=== PATIENT | female | born 1970 | race Caucasian/White ===

== ENCOUNTER 2020-05-21 10:04 | Outpatient (CLI) | payer BC, SELFPAY ==
--- NOTE | ~2020-05-21 | MM_ITS ---
EXAMINATION: MM scrn dorcas implant BI w alicia HISTORY: Screening mammogram TECHNIQUE: Craniocaudal and mediolateral oblique 3-D tomosynthesis images with implant displacement a nd synthetic 2-D images were generated. Craniocaudal and mediolateral oblique views of the breasts wi thout implant displacement were obtained using full field digital mammography. CAD analysis was submi tted and interpreted. COMPARISON: 10/04/2018, 02/15/2017, 09/18/2015 bilateral implant digital screening mammogram examinations BREAST PARENCHYMAL COMPOSITION: The breasts are heterogeneously dense, which may obscure small masses . FINDINGS: Status post bilateral augmentation mammoplasty. There is prominent calcification of the imp lants. There is no evidence of suspicious mass, calcification, or architectural distortion to suggest malignancy in either breast. There has been no suspicious interval change. IMPRESSION: 1. No mammographic evidence of malignancy. 2. Recommend routine screening mammography in one year. BI-RADS Category 1: Negative Reviewed, dictated and finalized at location A. ON SEQUESTRATION PLANT OPERATOR
== END 2020-05-21 10:05 | disposition home or self-care (01) ==
LOC: ANHIMG 10:08
PROVIDERS: PCP Family Medicine; Visit Provider Obstetrics & Gynecology
DX: Z12.31 Encounter for screening mammogram for malignant neoplasm of breast (principal)
CPT/HCPCS: 77063; 77067

== ENCOUNTER 2021-10-12 11:34 | Outpatient (CLI) | payer BC, SELFPAY ==
--- NOTE | ~2021-10-12 | MM_ITS ---
EXAMINATION: MM scrn dorcas implant BI w alicia HISTORY: Screening mammogram TECHNIQUE: Craniocaudal and mediolateral oblique 3-D tomosynthesis images with implant displacement a nd synthetic 2-D images were generated. Craniocaudal and mediolateral oblique views of the breasts wi thout implant displacement were obtained using full field digital mammography. CAD analysis was submi tted and interpreted. COMPARISON: 05/21/2020, 10/04/2018, 02/15/2017 bilateral screening mammogram examinations BREAST PARENCHYMAL COMPOSITION: The breasts are heterogeneously dense, which may obscure small masses . FINDINGS: Prominent calcifications are noted around both breast implants. There is no evidence of ibis picious mass, calcification, or architectural distortion to suggest malignancy in either breast. Ther e has been no suspicious interval change. IMPRESSION: 1. No mammographic evidence of malignancy. 2. Recommend routine screening mammography in one year. BI-RADS Category 1: Negative Reviewed, dictated and finalized at location A.
== END 2021-10-12 11:35 | disposition home or self-care (01) ==
LOC: ANHIMG 11:37
PROVIDERS: PCP Family Medicine; Visit Provider Obstetrics & Gynecology
DX: Z12.31 Encounter for screening mammogram for malignant neoplasm of breast (principal)
CPT/HCPCS: 77063; 77067

== ENCOUNTER 2023-02-13 14:52 | Outpatient (CLI) | payer BC, SELFPAY ==
--- NOTE | ~2023-02-13 | XR_ITS ---
EXAM: XR shoulder LT min 2V DATE: 02/13/2023 15:25 HISTORY: Pain to neck and left shoulder no injury . COMPARISON: X-ray T-spine 08/24/2012. FINDINGS: Intact cerclage/sternotomy wires over the midline chest. Normal mineralization. No fractur e or dislocation. No lytic or blastic lesion. Mild degenerative change at the AC joint and glenohumer al joint. No erosion or periosteal change. Soft tissues within normal limits. 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 Reviewed, dictated and finalized at location K.
--- NOTE | ~2023-02-13 | XR_ITS ---
EXAMINATION:XR cervical spine 4-5V DATE: 02/13/2023 15:25 INDICATION: Neck pain TECHNIQUE: AP, lateral in neutral, flexion, extension, and odontoid views of the cervical spine are p rovided. COMPARISON: None FINDINGS: There are 3 mm of retrolisthesis of C4 on C5. No hypermobility is present with flexion or e xtension. The odontoid process is intact. No fracture is identified. The vertebral body heights are m aintained. There is moderate loss of intervertebral disc space height at C4-5 and mild loss of interv ertebral disc space height at C5-6 and C6-7. Small degenerative osteophytes project from the anterior endplates of multiple vertebral bodies. There is multilevel moderate facet and uncovertebral joint o steoarthritis. Prevertebral soft tissues are normal. IMPRESSION: 1. Moderate cervical spondylosis without acute findings. Reviewed, dictated and finalized at location B.
== END 2023-02-13 14:53 | disposition home or self-care (01) ==
PROVIDERS: PCP Family Medicine; Visit Provider Family Medicine
DX: M47.892 Other spondylosis, cervical region (principal); M19.012 Primary osteoarthritis, left shoulder
CPT/HCPCS: 72050; 73030

== ENCOUNTER 2023-03-07 13:39 | Outpatient (CLI) | payer BC, SELFPAY ==
--- NOTE | ~2023-03-07 | MR_ITS ---
MRI of the cervical spine Clinical History: Spondylosis Technique: Axial T2-weighted and gradient images, and sagittal T1-weighted, T2-weighted, and STIR dianne ges were acquired. COMPARISON: 09/03/2012 Findings: No fracture identified. Minimal grade 1 retrolisthesis of C4 over C5 noted. No suspicious b one marrow signal abnormality seen. At C2-C3, there is no disc bulge or herniation. No spinal canal stenosis, cord compression, or neural foraminal narrowing. At C3-C4, there is no disc bulge or herniation. No spinal canal stenosis, cord compression, or neural foraminal narrowing. At C4-C5, there is degenerative disc narrowing with mild disc osteophyte convex. There is minimal fla ttening the ventral cord. There is probable minimal bilateral neural foraminal narrowing. At C5-C6, there is minimal disc osteophyte complex. No central canal stenosis or cord compression. Bi lateral neural foramina are preserved. At C6-C7, there is minimal disc osteophyte convex. No spinal canal stenosis, cord compression, or uzair ral foraminal narrowing. No abnormal signal seen in the spinal cord. Paravertebral soft tissues are unremarkable. Impression: Mild degenerative spondylosis overall, as detailed above, worst at C4-C5. Minimal grade 1 retrolisthesis of C4 over C5. Reviewed, dictated and finalized at [facility]. Impression: Mild degenerative spondylosis overall, as detailed above, worst at C4-C5. Minimal grade 1 retrolisthesis of C4 over C5.
== END 2023-03-07 13:40 | disposition home or self-care (01) ==
LOC: ANHIMG 13:42
PROVIDERS: PCP Family Medicine; Visit Provider Nurse Practitioner Family
DX: M47.812 Spondylosis without myelopathy or radiculopathy, cervical region (principal); M54.2 Cervicalgia
CPT/HCPCS: 72141

== ENCOUNTER 2023-05-28 08:21 | Outpatient (CLI) | payer BC, SELFPAY ==
[2023-05-28 09:03] LABS: Hematocrit 44.9 % (37.0-47.0); Hemoglobin 14.8 g/dL (12.0-15.0); Mean Corpuscular Hemoglobin 30.9 pg (26-34); Mean Corpuscular Volume 93.7 fl (80-100); Mean Platelet Volume 10.4 fl (7.4-10.4); Platelet Count Result 336 k/mm3 (150-375); Red Blood Count 4.79 M/mm3 (4.2-5.4); Red Cell Distribution Width 11.7 % (11.5-14.5); White Blood Count 5.6 K/mm3 (4.5-10.0)
[2023-05-28 09:31] LABS: Alanine Aminotransferase 24 U/L (6-35); Albumin Level 4.4 g/dL (3.5-5.1); Alkaline Phosphatase 63 U/L (38-126); Anion Gap 10 mmol/L (8-16); Aspartate Amino Transferase 24 U/L (14-36); Bilirubin,Total 0.6 mg/dL (0.2-1.3); Blood Urea Nitrogen 16 mg/dL (7-17); Calcium 9.3 mg/dL (8.4-10.2); Carbon Dioxide 28 mmol/L (22-30); Chloride 100 mmol/L (98-107); Cholesterol 250 mg/dL (0-200); Estimated Glomerular Filt Rate > 60; Glucose 101 mg/dL (65-110); HDL Direct 67 mg/dL; Potassium 4.2 mmol/L (3.4-5.0); Sodium 138 mmol/L (137-145); Triglycerides 266 mg/dL (<150)
[2023-05-28 09:33] LABS: LDL Cholesterol Direct 113 mg/dL
[2023-05-28 09:59] LABS: Vitamin D 25 Hydroxy 20.2 ng/mL
== END 2023-05-28 08:22 | disposition home or self-care (01) ==
LOC: ANHLAB 08:29
PROVIDERS: PCP Family Medicine; Visit Provider Nurse Practitioner Family
DX: E55.9 Vitamin D deficiency, unspecified (principal); E78.5 Hyperlipidemia, unspecified; Z13.29 Encounter for screening for other suspected endocrine disorder; Z13.1 Encounter for screening for diabetes mellitus
CPT/HCPCS: 36415; 80053; 80061; 82306; 84443; 85027

== ENCOUNTER 2023-06-10 09:00 | Outpatient (CLI) | payer BC, SELFPAY ==
--- NOTE | 2023-06-10 13:53 | WPDPFTINT ---
PFT Procedure Performed PFT Procedure Performed Spirometry with Pre/Post Bronchodilator Plethysmography (Lung Vol) Diffusing Cap (DLCO) Flow Vol Loop PFT Interpretation This is a pulmonary function test with pre and post-bronchodilator spirometry, plethysmography and diffusing capacity. The test was performed and results interpreted in accordance with the 2019 and 2005 ATS/ERS Task Force guidelines respectively using the Global Lung Function Initiative-2012 reference equations. Patient demonstrated good effort and cooperation. Reproducibility criteria were met. The quality of the pre bronchodilator spirometry maneuver was Grade A and post bronchodilator spirometry maneuver was Grade A. Findings: Spirometry: The contour the inspiratory and expiratory flow tracing are normal. The pre bronchodilator FVC is 3.03 L, 91% predicted. The pre bronchodilator FEV1 is 2.14 L, 81% predicted. The pre bronchodilator FEV1: FVC ratio 71%. The post bronchodilator FVC is 2.94 L, representing a 3% decrease. The post bronchodilator FEV1 is 2.26 L, representing a 6% increase. The post bronchodilator FEV1: FVC ratio 77%. Plethysmography: The total lung capacity is 4.28 L, 84% predicted. The functional residual capacity is 2.62 L, 92% predicted. The residual volume is 1.24 L, 66% predicted. Diffusing capacity: The diffusing capacity unadjusted for hemoglobin and carboxyhemoglobin is 16.3, 74% predicted. The diffusing capacity adjusted for alveolar volume is 4.36, 96% predicted. Impression: The spirometry is normal without evidence of an obstructive abnormality. There is no significant improvement after inhaling a single dose of albuterol. The lung volumes are normal. The diffusing capacity is normal. There are no prior studies for comparison
== END 2023-06-10 09:01 | disposition home or self-care (01) ==
LOC: ANHPFT 09:01
PROVIDERS: PCP Family Medicine; Visit Provider Family Medicine
DX: J43.9 Emphysema, unspecified (principal)
CPT/HCPCS: 94060; 94726; 94729

== ENCOUNTER 2023-06-25 15:44 | Outpatient (CLI) | payer BC, SELFPAY ==
--- NOTE | ~2023-06-25 | MM_ITS ---
EXAMINATION: MM scrn dorcas implant BI w alicia HISTORY: Screening mammogram TECHNIQUE: Craniocaudal and mediolateral oblique 3-D tomosynthesis images with implant displacement a nd synthetic 2-D images were generated. Craniocaudal and mediolateral oblique views of the breasts wi thout implant displacement were obtained using full field digital mammography. CAD analysis was submi tted and interpreted. COMPARISON: October 12, 2021, May 21, 2020 bilateral implant screening mammogram examinations BREAST PARENCHYMAL COMPOSITION: The breasts are heterogeneously dense, which may obscure small masses . FINDINGS: Status post bilateral augmentation mammoplasty. There is no evidence of suspicious mass, ca lcification, or architectural distortion to suggest malignancy in either breast. There has been no jackson spicious interval change. IMPRESSION: 1. No mammographic evidence of malignancy. 2. Recommend routine screening mammography in one year. BI-RADS Category 1: Negative Reviewed, dictated and finalized at location A. ON SAMPLER
== END 2023-06-25 15:45 | disposition home or self-care (01) ==
LOC: ANHIMG 15:46
PROVIDERS: PCP Family Medicine; Visit Provider Obstetrics & Gynecology
DX: Z12.31 Encounter for screening mammogram for malignant neoplasm of breast (principal)
CPT/HCPCS: 77063; 77067

== ENCOUNTER 2024-05-24 14:12 | Outpatient (CLI) | payer BC, SELFPAY ==
--- NOTE | ~2024-05-24 | XR_ITS ---
EXAMINATION: XR hip RT min 2V DATE: 05/24/2024 14:30 INDICATION: Posterior right hip pain. TECHNIQUE: 2 views of right hip were obtained. COMPARISON: None. FINDINGS: Alignment is normal. No fracture. Right hip joint space is normal. IMPRESSION: 1. Normal right hip. Reviewed, dictated and finalized at location A. CTIONS THERAPIST IMPRESSION: 1. Normal right hip.
== END 2024-05-24 14:13 | disposition home or self-care (01) ==
PROVIDERS: PCP Family Medicine; Visit Provider Nurse Practitioner Adult Health
DX: M25.551 Pain in right hip (principal)
CPT/HCPCS: 73502

== ENCOUNTER 2024-06-08 11:00 | Outpatient (CLI) | payer BC, SELFPAY ==
--- NOTE | ~2024-06-08 | XR_ITS ---
XR sacroiliac joints min 3V Ordering provider: Kathi Rangel, SOLAR SYSTEM INSTALLER-C History: . Sacrococcygeal disorders, not elsewhere classified . Comparison: None. FINDINGS: BONES: Sclerotic areas are seen in the left pedicle of L4 and L5. No acute fracture or dislocation. JOINTS: The bilateral sacroiliac joint spaces appear well maintained. No bony fusion of the sacroilia c joints or bony erosions. SOFT TISSUES: Unremarkable. IMPRESSION: NO ACUTE OSSEOUS ABNORMALITY. NORMAL SACROILIAC JOINTS. Reviewed, dictated and finalized at location A. HARDENER
== END 2024-06-08 11:01 | disposition home or self-care (01) ==
LOC: MICIMG 11:02
PROVIDERS: PCP Family Medicine; Visit Provider Nurse Practitioner Family
DX: M53.3 Sacrococcygeal disorders, not elsewhere classified (principal)
CPT/HCPCS: 72202

== ENCOUNTER 2024-11-30 13:26 | Outpatient (CLI) | payer BC, SELFPAY ==
--- NOTE | ~2024-11-30 | MMUS_ITS ---
Examination: MM diagnostic DARNELL implant BI W alicia and US breast LT limited INDICATION: 54-year old female with bilateral breast augmentation with silicone implants feels a left breast lump between 1:30 and 12:00 location. COMPARISON: 06/25/2023 through 10/04/2018 TECHNIQUE: Digital breast tomosynthesis CC and MLO views of Both breasts and True lateral and spot co mpression of the Both breasts were obtained with computer-aided detection to assist in interpretation of the study. A radiopaque skin marker was placed over the area of LEFT breast palpable lump. FINDINGS: The breasts are heterogeneously dense, which may obscure small masses. There are no suspicious masses, calcifications, architectural distortion or any other abnormality in Both breasts. No suspicious mammographic abnormality correlates to the radiopaque skin marker. No str uctural capsular silicone material evident. LEFT BREAST ULTRASOUND FINDINGS: Targeted sonographic evaluation of the palpable area and subareolar area was completed. There is no s onographic abnormality that correlates to the area of palpable lump identified by the patient. There are multiple lines of the implant elastomer seen within the silicone gel compatible with intrac apsular implant rupture. No extracapsular silicone material is evident. IMPRESSION: 1. NO MAMMOGRAPHIC OR SONOGRAPHIC FINDING CORRELATE TO THE PALPABLE LUMP IN THE LEFT BREAST. FURTHER EVALUATION OF PATIENT'S PALPABLE LUMP SHOULD BE BASED ON CLINICAL IMPRESSION. FOLLOW-UP CLINICALLY WARRANTED. 2. NO MAMMOGRAPHIC EVIDENCE OF MALIGNANCY IN BILATERAL BREASTS. 3. FINDINGS COMPATIBLE WITH INTRACAPSULAR RUPTURE OF LEFT SILICONE IMPLANT. CONSIDER FURTHER EVALUATION WITH BREAST MRI. BI-RADS 2, BENIGN Reviewed, dictated and finalized at location B. IMPRESSION: 1. NO MAMMOGRAPHIC OR SONOGRAPHIC FINDING CORRELATE TO THE PALPABLE LUMP IN THE LEFT BREAST. FURTHER EVALUATION OF PATIENT'S PALPABLE LUMP SHOULD BE BASED ON CLINICAL IMPRESSION. FOLLOW-UP CLINICALLY WARRANTED. 2. NO MAMMOGRAPHIC EVIDENCE OF MALIGNANCY IN BILATERAL BREASTS. 3. FINDINGS COMPATIBLE WITH INTRACAPSULAR RUPTURE OF LEFT SILICONE IMPLANT. CONSIDER FURTHER EVALUATION WITH BREAST MRI. BI-RADS 2, BENIGN
--- OUTSIDE RECORDS SUMMARY | 2024-11-30 13:34 | XMS_ITS | Clinical Summary ---
Author Organization [facility] Address [address] [address] Attn: Epic Prelude ADT JENNIFER JONES [id number] Care Team Providers Care Railway Engineer Name Role Phone Unavailable Primary Care Provider Unavailabl e Immunizations Immunization Administration Dates Next Due INFLUENZA VACCINE QUADRIVALENT 6 MOS UP PF IM Social History Tobacco Use Types Packs/Day Years Used Date Smoking Tobacco: Never Assessed Comments Unknown Sex and Gender Information Value Date Recorded Sex Assigned at Not on file Legal Sex Female 3:26 PM CDT Gender Identity Not on file Sexual Orientation Not on file Plan of Treatment Health Maintenance Due Date Last Done Comments DTAP/TDAP/TD VACCINES (1 - Tdap) 1987 HEPATITIS B VACCINES (1 of 3 - 19+ 3-dose series) 04/29 HPV/Cotest (21-29) 1989 CERVICAL CANCER SCREENING 1998 HPV/Cotest (30-65) 1998 PAP SMEAR 1998 BREAST CANCER SCREENING 2008 COLORECTAL SCREENING 2013 Colorectal Cancer Screening 2013 FIT-DNA Q 3 years 2013 FIT/FOBT Q 1 year 2013 Flex Sig/CT Colonography Q 5 years 2013 ZOSTER VACCINE (1 of 2) 2018 INFLUENZA VACCINE (#1) 2024 05/28/2023 Insurance RX [facility] [employer] [facility] [employer]
--- OUTSIDE RECORDS SUMMARY | 2024-11-30 13:34 | XMS_ITS | Clinical Summary ---
Author Organization [facility] [address] Address [address] [place] [id number] Care Team Providers Care Unit Leader Name Role Phone Gage Osborn MD Primary Care Provider + [phone] Allergies Active Allergy Reactions Criticality Noted Date Comments Nickel Penicillins Other (See comments) Reaction: Unknown, Medications FLUoxetine (PROzac) 10 mg tablet/capsule Take 1 tablet/capsu le (10 mg total) by mouth daily Active dextroamphetami ne-amphetamine (ADDERALL) 10 mg tablet 1 tablet (10 mg total) Active amitriptyline (ELAVIL) 10 mg tablet TAKE 3/4 TABLET BY MOUTH EVERY DAY 03/16/2023 Active estradiol-noret hindrone (ACTIVELLA) 0.5-0.1 mg per tablet Take 1 tablet by mouth daily 03/09/2023 Active Ozempic 1 mg/dose (4 mg/3 mL) pen injector injection INJECT 1 MG UNDER THE SKIN ONCE WEEKLY 03/09/2023 Active benzonatate (TESSALON) 100 mg capsuleIndicati ons:Cough Take 1 capsule (100 mg total) by mouth 3 (three) times a day as needed for cough 42 capsule 05/10/2023 Active Active Problems No known active problems Medical History Medical History Date Comments Depression Depression Family History Medical History Relation Name Comments Diabetes Other Hypertension Other Family history of Hypertension; Relation Name Status Comments Other Social History Tobacco Use Types Packs/Day Years Used Date Smoking Tobacco: Never Smokeless Tobacco: Never Alcohol Use Standard Drinks/Week Comments Yes 0 (1 standard drink = 0.6 oz pur e alcohol) Comments Unknown Sex and Gender Information Value Date Recorded Sex Assigned at Not on file Legal Sex Female 3:38 AM SENIOR UI SOFTWARE ENGINEER Gender Identity Not on file Sexual Orientation Not on file 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 on file Not on file Not on file Obstetrics History Last Filed Vital Signs Vital Sign Reading Time Taken Comments Blood Pressure 130/86 05/10/2023 10:53 AM SENIOR UI SOFTWARE ENGINEER Pulse 88 05/10/2023 10:53 AM SENIOR UI SOFTWARE ENGINEER Temperature 36.6 C (97.9 F) 05/10/2023 10:53 AM SENIOR UI SOFTWARE ENGINEER Respiratory Rate 18 05/10/2023 10:53 AM SENIOR UI SOFTWARE ENGINEER Oxygen Saturation 99% 05/10/2023 10:53 AM SENIOR UI SOFTWARE ENGINEER Inhaled Oxygen Concentration - - Weight 70.3 kg (155 lb) 05/10/2023 10:53 AM SENIOR UI SOFTWARE ENGINEER Height 162.6 cm (5' 4) 05/10/2023 10:53 AM SENIOR UI SOFTWARE ENGINEER Body Mass Index 26.61 05/10/2023 10:53 AM SENIOR UI SOFTWARE ENGINEER Plan of Treatment Health Maintenance Due Date Last Done Comments Breast Cancer Screening-Mammogram 1968 Cervical Cancer Screening 1968 Colon Cancer Screening-Colonoscopy 1968 Depression Screening 1968 Hepatitis C Screening 1968 DTaP/Tdap/Td Vaccine (1 - Tdap) 1979 Hepatitis B Screening 1986 Regular Well Visit/Exam 18-64 1986 Zoster Vaccine (1 of 2) 2018 Covid-19 Vaccine (2 - 2023-2 5 season) 2024 05/31/2021 Influenza Vaccine (Season Ended) 2025 04/05/2017, 04/07/2016, 03/31/2015 Pneumococcal vaccine <65 Aged Out No longer eligible based on patient's age to complete this topic Insurance [facility] [employer] [facility] [employer] Care Teams Unit Leader Relationship Specialty Start Date End Date Gage Osborn MD PCP - General 10/13/14
--- OUTSIDE RECORDS SUMMARY | 2024-11-30 13:34 | XMS_ITS | Patient Health Record ---
Author Organization [facility] [employer] [facility] Address [address] [facility] [address] [place] [address] Care Team Providers Care Sausage Maker Name Role Phone Arnold Carranza Unavailable [phone] Allergies Allergen (clinical drug ingredient) Drug/Non Drug Allergy documented on EMR Reaction Allergy Type Onset Date Status Substance with penicillin structure and antibacterial mechanism of action (substance) Penicillins Unknown Drug Allergy 09/03/2023 Active Results Component Value Reference Range Notes UDT Reviewed date:12/03/2023 09:28:49 PM Interpretation:Abnormal Performing Lab: Notes/Report: Abnormal THC neg 0 - 50 ng/ml Cocaine neg Amphetamine pos Buprenorphine (BUP) neg Secobarbital (Bar) neg Oxazepam (BZO) neg 9-rjgawaclhr-1,1-xfvjzyns-4,3-diphenylpyrrolidine (LULU P) neg Methamphetamine (MET) neg Methylenedioxymethamphetamine (MDMA) neg Morphine (MOP 300/HNP3260) neg Methadone (MTD) neg Phencyclidine (PCP) neg Nortriptyline (TCA) neg x neg Reason For Referral No Information Medications Medication SIG (Take, Route, Frequency, Duration) Notes Start Date End Date Status ZEPBOUND 2.5 MG/0.5 ML SUBCUTANEOUS PEN INJECTOR *Reorder from [email or web address] for eRx and Interaction Alerts* 09/03/2023 Unknown ESTRADIOL-NORETHINDRO NE ACETAT 0.5-0.1 mg Oral *Reorder from [employer] for eRx and Interaction Alerts* 09/03/2023 Unknown Amphetamine-Dextroamp hetamine 10 MG 1 tablet in the morning by mouth once a day for 30 days 01/27/2024 Active Amitriptyline HCl 10 MG Oral 09/03/2023 Unknown FLUoxetine HCl 10 MG 1 capsule Oral Once a day for 90 days 09/03/2023 Unknown FLUoxetine HCl 20 MG 1 tablet Orally Once a day for 90 days 09/03/2023 Unknown Social History Sex Assigned At : Social History Observation Description Sex Assigned At Female Problems Problem Type SNOMED Code ICD Code Onset Dates Problem Status W/U Status Risk Notes Problem Vitamin D deficiency (18186747) Vitamin D deficiency, unspecified (E55.9) Active confirmed Problem Major depressive disorder, recurrent severe without psychotic features (F33.2) Active confirmed Problem Attention deficit hyperactivity disorder, predominantly inattentive type (51375464) Attention-deficit hyperactivity disorder, predominantly inattentive type (F90.0) Active confirmed Vital Signs Heart Rate 92 /min 12/03/2023 Height-cm 162.56 cm 12/03/2023 Blood pressure diastolic 76 mm Hg 12/03/2023 Weight-kg 67.59 kg 12/03/2023 Height 64.00 in 12/03/2023 Blood pressure systolic 111 mm Hg 12/03/2023 Weight 149 lbs 12/03/2023 BMI 25.57 kg/m2 12/03/2023 Encounters Encounter Location Date Provider Diagnosis [facility] [address] [place] [address] 12/03/2023 Arnold Carranza Other snf (current) drug therapy Z79.899 ; Major depressive disorder, recurrent severe without psychotic features F33.2 ; Attention-deficit hyperactivity disorder, predominantly inattentive type F90.0 and Vitamin D deficiency, unspecified E55.9 [facility] [address] [place] [address] 01/06/2024 Arnold Carranza Attention-deficit hyperactivity disorder, predominantly inattentive type F90.0 [facility] [address] [place] [address] 01/27/2024 Arnold Carranza [facility] [address] [place] [address] 12/02/2023 Arnold Carranza [facility] [address] [place] [address] 12/30/2023 [facility] [address] [place] [address] 01/01/[address] [facility], [facility] [address] [place] [address] 01/05/2024 Arnold Carranza Attention-deficit hyperactivity disorder, predominantly inattentive type F90.0 [facility] [address] [place] [address] 01/05/[address] [facility] [address] [place] [address] 01/26/2024 Arnold Carranza Attention-deficit hyperactivity disorder, predominantly inattentive type F90.0 Assessments Encounter Date Diagnosis (ICD Code) Assessment Notes Treatment Notes Treatment Clinical Notes Section Notes 01/05/2024 Attention-deficit hyperactivity disorder, predominantly inattentive type (ICD-10 - F90.0) 01/06/2024 Attention-deficit hyperactivity disorder, predominantly inattentive type (ICD-10 - F90.0) 01/26/2024 Attention-deficit hyperactivity disorder, predominantly inattentive type (ICD-10 - F90.0) 12/03/2023 Major depressive disorder, recurrent severe without psychotic features (ICD-10 - F33.2) Depression - Assessment: Patient reports no depressive symptoms in the last three months and is managing well on the current medication regimen. - Plan: - Continue fluoxetine 10 mg and 20 mg (total 30 mg) daily. - Provide a 90-day prescription. - Reassess in 3-4 months or as needed. ADHD - Assessment: Patient is stable on the current medication regimen. - Plan: - Continue Adderall 10 mg daily. - Patient to request medication through the vilma as per the new controlled medication policy. - Reassess in 3-4 months or as needed. Chronic Tiredness and Fatigue - Assessment: Patient reports no significant issues with sleep or appetite. - Plan: - Continue monitoring and addressing any contributing factors. - Reassess in 3-4 months or as needed. Anxiety - Assessment: Patient reports mild anxiety but is able to manage it through self-help techniques. - Plan: - Continue monitoring and encourage the use of self-help techniques. - Reassess in 3-4 months or as needed. Weight Loss - Assessment: Patient reports slow and steady weight loss with Zepbound at the lowest dose. The patient has not yet started the higher dose due to nationwide supply issues. - Plan: - Continue Zepbound at the current dose. - Encourage the patient to start the higher dose when available and monitor weight loss progress. - Reassess in 3-4 months or as needed. 12/03/2023 Other snf (current) drug therapy (ICD-10 - Z79.899) Depression - Assessment: Patient reports no depressive symptoms in the last three months and is managing well on the current medication regimen. - Plan: - Continue fluoxetine 10 mg and 20 mg (total 30 mg) daily. - Provide a 90-day prescription. - Reassess in 3-4 months or as needed. ADHD - Assessment: Patient is stable on the current medication regimen. - Plan: - Continue Adderall 10 mg daily. - Patient to request medication through the vilma as per the new controlled medication policy. - Reassess in 3-4 months or as needed. Chronic Tiredness and Fatigue - Assessment: Patient reports no significant issues with sleep or appetite. - Plan: - Continue monitoring and addressing any contributing factors. - Reassess in 3-4 months or as needed. Anxiety - Assessment: Patient reports mild anxiety but is able to manage it through self-help techniques. - Plan: - Continue monitoring and encourage the use of self-help techniques. - Reassess in 3-4 months or as needed. Weight Loss - Assessment: Patient reports slow and steady weight loss with Zepbound at the lowest dose. The patient has not yet started the higher dose due to nationwide supply issues. - Plan: - Continue Zepbound at the current dose. - Encourage the patient to start the higher dose when available and monitor weight loss progress. - Reassess in 3-4 months or as needed. 12/03/2023 Attention-deficit hyperactivity disorder, predominantly inattentive type (ICD-10 - F90.0) Depression - Assessment: Patient reports no depressive symptoms in the last three months and is managing well on the current medication regimen. - Plan: - Continue fluoxetine 10 mg and 20 mg (total 30 mg) daily. - Provide a 90-day prescription. - Reassess in 3-4 months or as needed. ADHD - Assessment: Patient is stable on the current medication regimen. - Plan: - Continue Adderall 10 mg daily. - Patient to request medication through the vilma as per the new controlled medication policy. - Reassess in 3-4 months or as needed. Chronic Tiredness and Fatigue - Assessment: Patient reports no significant issues with sleep or appetite. - Plan: - Continue monitoring and addressing any contributing factors. - Reassess in 3-4 months or as needed. Anxiety - Assessment: Patient reports mild anxiety but is able to manage it through self-help techniques. - Plan: - Continue monitoring and encourage the use of self-help techniques. - Reassess in 3-4 months or as needed. Weight Loss - Assessment: Patient reports slow and steady weight loss with Zepbound at the lowest dose. The patient has not yet started the higher dose due to nationwide supply issues. - Plan: - Continue Zepbound at the current dose. - Encourage the patient to start the higher dose when available and monitor weight loss progress. - Reassess in 3-4 months or as needed. 12/03/2023 Vitamin D deficiency, unspecified (ICD-10 - E55.9) Depression - Assessment: Patient reports no depressive symptoms in the last three months and is managing well on the current medication regimen. - Plan: - Continue fluoxetine 10 mg and 20 mg (total 30 mg) daily. - Provide a 90-day prescription. - Reassess in 3-4 months or as needed. ADHD - Assessment: Patient is stable on the current medication regimen. - Plan: - Continue Adderall 10 mg daily. - Patient to request medication through the vil[facility] as per the new controlled medication policy. - Reassess in 3-4 months or as needed. Chronic Tiredness and Fatigue - Assessment: Patient reports no significant issues with sleep or appetite. - Plan: - Continue monitoring and addressing any contributing factors. - Reassess in 3-4 months or as needed. Anxiety - Assessment: Patient reports mild anxiety but is able to manage it through self-help techniques. - Plan: - Continue monitoring and encourage the use of self-help techniques. - Reassess in 3-4 months or as needed. Weight Loss - Assessment: Patient reports slow and steady weight loss with Zepbound at the lowest dose. The patient has not yet started the higher dose due to nationwide supply issues. - Plan: - Continue Zepbound at the current dose. - Encourage the patient to start the higher dose when available and monitor weight loss progress. - Reassess in 3-4 months or as needed. Plan Of Treatment No Information Insurance Providers Payer Name Payer Address Payer Phone Subscriber Number Group Number Insured Name Patient Relationship to Insured Coverage Start Date Coverage End Date [employer] [employer] [address] [place] [address] [id number] ZHANG Spouse - patient is the spouse of the insured Medical (General) History Medical History History ICD Code Problems: Attention deficit hyperactivit y disorder, combined type Attention deficit hyperactivity disorder , predominantly inattentive type Severe recurrent major depression withou t psychotic features Vitamin D deficiency , Surgical History Surgery Date(Month/Year) Breast surgery (02251) 06/29/1989
--- OUTSIDE RECORDS SUMMARY | 2024-11-30 13:34 | XMS_ITS | Clinical Summary ---
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 Gender Identity Not on file Sexual Orientation Not on file Plan of Treatment Health Maintenance Due Date Last Done Comments Hepatitis C Virus (HCV) Screening 1968 TdaP Immunization 1968 Hepatitis B Immunization (1 of 3 - 19+ 3-dose series) 1987 Colonoscopy 2013 Colorectal Cancer Screening 2013 Cologuard 2018 Immunochemical Fecal Occult Blood 2018 Pneumococcal Immunization (5 0+ years) (1 of 1 - PCV) 2018 Zoster Immunization (2 of 2) 08/10/2020 06/15/2020 Influenza Immunization (#1) 02/28/2024/01/2017, 04/07/2016, 03/31/2015 SARS-COV-2 Immunization ( season) 2024 05/31/2021, 09/03/2020 Respiratory Syncytial Virus (RSV) Immunization (Adult) (1 - 1-dose 75+ series) 2043 Meningococcal Immunization (ACWY) Aged Out No longer eligible b ased on patient's age to complete this topic Rotavirus Immunization Aged Out No lo nger eligible based on patient's age to complete this topic
--- OUTSIDE RECORDS SUMMARY | 2024-11-30 13:34 | XMS_ITS | Referral Summary ---
Author Organization [facility] [address] Address [address] [place] [address] Care Team Providers Care Sole Rougher Name Role Phone Gage Osborn MD Primary Care Provider + [phone] Allergies Active Allergy Reactions Criticality Noted Date [...] Active Active Problems No known active problems Social History Tobacco Use Types Packs/Day Years Used Date Smoking Tobacco: Never Smokeless Tobacco: Never Alcohol Use Standard Drinks/Week Comments Yes 0 (1 standard drink = 0.6 oz pur e alcohol) Comments Unknown Sex and Gender Information Value Date Recorded Sex Assigned at Not on file Legal 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 Gender Identity Not on file Sexual Orientation Not on file 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 Not on file Not on file Last Filed Vital Signs Vital Sign Reading Time Taken Comments Blood Pressure 130/86 05/10/2023 10:53 AM CASINO OPERATIONS SUPERVISOR Pulse 88 05/10/2023 10:53 AM CASINO OPERATIONS SUPERVISOR Temperature 36.6 C (97.9 F) 05/10/2023 10:53 AM CASINO OPERATIONS SUPERVISOR Respiratory Rate 18 05/10/2023 10:53 AM CASINO OPERATIONS SUPERVISOR Oxygen Saturation 99% 05/10/2023 10:53 AM CASINO OPERATIONS SUPERVISOR Inhaled Oxygen Concentration - - Weight 70.3 kg (155 lb) 05/10/2023 10:53 AM CASINO OPERATIONS SUPERVISOR Height 162.6 cm (5' 4) 05/10/2023 10:53 AM CASINO OPERATIONS SUPERVISOR Body Mass Index 26.61 05/10/2023 10:53 AM CASINO OPERATIONS SUPERVISOR Plan of Treatment Not on file Insurance [facility] FEDERAL [facility] [employer] Care Teams Sole Rougher Relationship Specialty Start Date End Date Gage Osborn MD PCP - General 10/13/14
== END 2024-11-30 13:27 | disposition home or self-care (01) ==
LOC: ANHIMG 13:30
PROVIDERS: PCP Family Medicine; Visit Provider Obstetrics & Gynecology
DX: N63.22 Unspecified lump in the left breast, upper inner quadrant (principal)
CPT/HCPCS: 76642; 77062; 77066; G0279

== ENCOUNTER 2025-01-19 11:03 | Outpatient (CLI) | payer BC, SELFPAY ==
--- NOTE | ~2025-01-19 | MR_ITS ---
MRI of the lumbar spine Clinical History: Lumbar strain Technique: Axial T2-weighted images, and sagittal T1-weighted, T2-weighted, and T2 fat-sat images wer e acquired. Findings: There is no fracture or subluxation of the lumbar spine. Vertebral bodies maintain normal h eight and alignment. No bone marrow signal abnormality seen. At L1-L2, L2-L3, the intervertebral discs maintain normal signal and position. No disc bulge or herni ation at these levels. No spinal canal stenosis or neural foraminal narrowing at these levels. L3-L4, there is minimal degenerative disc narrowing without disc bulge or herniation. There is modera te to advanced facet arthropathy. No central canal stenosis or neural foraminal narrowing. At L4-L5, there is disc desiccation with minimal disc bulge. There is advanced facet arthropathy. Pro bable tiny right synovial cyst. No spinal canal stenosis or neural foraminal narrowing. At L5-S1, there is minimal disc bulge with mild facet arthropathy. No central canal stenosis or neura l foraminal narrowing. Paravertebral soft tissues are unremarkable. Impression: Mild degenerative spondylosis overall, as detailed above. Reviewed, dictated and finalized at location . Impression: Mild degenerative spondylosis overall, as detailed above.
== END 2025-01-19 11:04 | disposition home or self-care (01) ==
LOC: MICIMG 11:04
PROVIDERS: PCP Family Medicine
DX: S39.012A Strain of muscle, fascia and tendon of lower back, initial encounter (principal); X58.XXXA Exposure to other specified factors, initial encounter; M47.896 Other spondylosis, lumbar region
CPT/HCPCS: 72148